=== PATIENT | female | born 1960 | race Caucasian/White ===

== ENCOUNTER 2017-06-28 21:58 | Emergency (ER) | payer MEDICARE, OTHER ==
[~2017-06-28] VITALS: Ht 162.6 cm; Wt 59.0 kg
[~2017-06-28 21:58] MED LIST: BLACK COHOSH540 MG PO; BUSPIRONE HCL30 MG PO; COMBIVENT INH14.7 GM INH; CYMBALTA30 MG PO; CYMBALTA60 MG PO; HYDROCODON-ACE1 EAC3 PO; LYRICA75 MG PO; PRILOSEC20 MG PO
[2017-06-28] MEDS ORDERED: IBUPROFEN IB200 MG PO (22:26)
== END 2017-06-28 23:48 | disposition home or self-care (01) ==
LOC: ED 21:58
DX: G89.29 Other chronic pain (principal); M79.641 Pain in right hand; F41.9 Anxiety disorder, unspecified; J44.9 Chronic obstructive pulmonary disease, unspecified; F17.200 Nicotine dependence, unspecified, uncomplicated
CPT/HCPCS: 99282

== ENCOUNTER 2020-01-06 10:55 | Inpatient (IN) | payer MEDICARE, OTHER ==
[~2020-01-06] VITALS: Ht 162.6 cm; Wt 51.7 kg
[~2020-01-06 10:55] MED LIST changes: +IBUPROFEN IB200 MG PO
--- NOTE | 2020-01-06 13:50 | NUR ---
56 year old female PATIENT ADMITTED TO CCU UNDER DR. GARZA WITH DX OF ETOH WITHDRAWAL. UPON ADMIT PATIENT IS AWAKE. TO COMMODE TO VOID, IS UNSTEADY ON FEET. VERY SHAKEY. IS SOMEWHAT AGGITATED WITH ADMISSION AND WHAT IS HAPPENIG WITH HER. PAST HISTORY OF SEIZURE THAT THE PATIENT DOES NOT RECALL. OLD AND FRESH BLOOD IN AND AROUND MOUTH. TO BE. ADMISSION PROCESS STARTED. PATIENT WILL NOT ANSWERE MOSST OF ADMISSION QUESTIONS.
--- NOTE | 2020-01-06 14:30 | NUR ---
UP TO COMMODE AGAIN. VERY UNSTEADY ON FEET. VERY SHAKEY. UPON RETURN TO BED, ATIVAN 1 MG IV GIVEN. SITTING UP IN BED TO EAT. IVF INFUSING. BOLUS INFUSING, BANANA BAG, KCL AND MAG RIDER. TOOK PO KCL WELL. IS SHORT OF BREATH WITH EXERTION. NEB TREATMENT GIVEN BY RT.
--- NOTE | 2020-01-06 15:00 | NUR ---
TOOK FOOD POOR. IS VERY FORGETFUL. ATTEMPING TO GET OUT OF BED. NEEDS FREQUENT REMINDERS.
--- NOTE | 2020-01-06 16:04 | NUR ---
1 MG IV ATIVAN GIVEN FOR CIWA OF 10. PT VERY TREMULOUS. BED ALARM ON FOR SAFETY.
--- NOTE | 2020-01-06 17:30 | NUR ---
sitting up at bedside. ASKING TO GO OUTSIDE TO SMOKE. ATIVAN 1 MG IV GIVEN. THEN BACK TO BED.
--- NOTE | 2020-01-06 18:30 | NUR ---
UP TO COMMODE. REMAINS VERY UNSTEADY. IS FORGETFUL. TAKING FEW BITES OF DINNER.
--- NOTE | 2020-01-06 18:48 | NUR ---
PATIENT ALSO STATES TO THIS RN, "I CAN'T TAKE THIS MUCH OXYGEN HOME, THERE'S NOW WAY I COULD DO THAT." ATTEMPTED TO EXPLAIN TO PATIENT THAT IF SHE WERE TO TRANSITION TO COMFORT CARE FROM THIS HOSPITAL STAY, SHE WOULDN'T NECESSARILY BE TAKING "THAT MUCH" OXYGEN HOME, BUT INSTEAD OXYGEN FOR COMFORT. PATIENT WANTING TO KNOW SPECIFICALLY HWO MUCH OXYGEN IT WOULD BE. PATIENT HAS STATED THAT SHE THINKS SHE IS MORE OR LESS READY TO STOP SOME OF THIS TREATMENT BUT DOENS'T KNOW HOW HER DAUGHTERS WILL HANDLE EVERYTHING. REITERATED TO PATIENT THAT IT'S IMPORTANT FOR HER TO MAKE HER DECISIONS BASED ON WHAT SHE WANTS FOR HER CARE. REMINDED PATIENT THAT SHE IS IN CHARGE OF HER MEDICAL DECISIONS, AND THAT IF SHE WANTS TO CONTINUE WITH THE WAY THINGS ARE, THEN THAT'S WHAT HER DECISION SHOULD BE, BUT IF SHE WANTS SOMETHING DIFFERENT, SHE NEEDS TO TELL US.
--- NOTE | 2020-01-06 21:47 | NUR ---
TOOK OVER CARE FOR THIS PT AT 2114. CIWA DONE AT THAT TIME WAS A 9. PT WAS RESTLESS AND VERY TREMULOUS. 2MG IV ATIVAN WAS GIVEN. ALL LOBES ARE DIMINISHED, ABD SOUNDS ARE PRESENT, NO PERIPHERAL EDEMA NOTED. THERE IS BRUISING A LAC AND EDEMA AROUND THE LEFT ORBIT. WILL CONTINUE TO MONITOR. URINE OUTPUT ADEQUATE SO FAR.
--- NOTE | 2020-01-06 22:15 | NUR ---
PT WAS TO BE GIVEN ORDERED K+ PO AND THIAMIN PO. PT ASPIRATED ON PILL. PT NOT ABLE TO SWALLOW ANY PILLS AT THIS TIME. WILL CALL MD AYERS.
--- NOTE | 2020-01-06 22:30 | NUR ---
WAS CALLED. HE WILL CHNAGE ORDERS AROUND. HELD OFF ON THE 2MG IV ATIVAN AT THIS TIME BECAUSE I WANT TO SEE HOW PT IS DOING IN REGARDS TO RESPIRATIONS AND O2 SATS.
--- NOTE | 2020-01-06 23:00 | NUR ---
LOBES APPEAR CLEAR AT THIS TIME BUT PT NOW HAS COARSNESS IN HER UPPER AIRWAY PRESENT. O2 SATS ARE WDL ON RA, RR STILL IN THE 20'S-30'S. THIS IS NOT A NEW FINDING. PT HAS BEEN WITH HIGH RR SINCE I TOOK OVER CARE. ALSO HAD TO CALL TELE-PHARMACY TO CHANGE ORDER OF IV POTASSIUM SINCE WE DO NOT HAVE THE 500MLS BAG AVAILABLE AT NIGHT. TELE-PHARMACY TO CHANGE ORDER.
--- NOTE | 2020-01-07 00:17 | NUR ---
PT SINCE ABOUT A 1/2 HOUR HAS BEEN SLEEPING. K+ IS RUNNING. WILL CONTINUE TO MONITOR.
--- NOTE | 2020-01-07 01:28 | NUR ---
BORTH IV SITES HAD TO BE REMOVED DUE TO LEAKING AND INFILTRATION. IT WAS ALMOST IMPOSSIBLE TO START A NEW IV SITE EVEN WITH 4MG IV ATIVAN ON BOARD. PT IS STILL AGITATED AND RESTLESS AT THIS TIME.
--- NOTE | 2020-01-07 02:47 | NUR ---
PT AT THIS TIME IS RESTING. PT SO FAR HAS NOT OPENED HER MOUTH FOR ME. PT HAD DRY BLOOD PRESENT AROUND HER MOUTH. PERHAPS SHE HAS BITEN HER TONGUE DURING HER SEIZURE. WILL KEEP TRYING. THIS MAY ALSO HAVE TO DO WITH HER HAVING DIFFICULTY SWALLOWING.
--- NOTE | 2020-01-07 04:00 | NUR ---
RR STILL IN THE MID 30'S FOR THE MOST PART. PT WOULD BENEFIT FROM AN ORAL AIRWAY BUT PT WON'T TOLERATE THIS. PT HAS GRUNTING PRESENT IN UPPER AIRWAY, ALL LOBES ARE DIMINISHED AND CLEAR, NO CHANGES WERE NOTED WITH THIRD ASSESSMENT. BESIDES RR, OTHER V/S ARE WDL, URINE OUTPUT IS WDL.
--- NOTE | 2020-01-07 05:54 | NUR ---
AT START OF SHIFT PT WAS VERY TREMULOUS, RESTLESS AND AGITATED. MAX DOSES OF IV ATIVAN WAS GIVEN. RR HAS REMAINED IN THE MID 30'S PRETTY MUCH ALL SHIFT. PT DID SETTLE IN THE PHYSICIAN/INTERNIST HOURS. PT ALSO LOST TWO IV SITES DUE TO IV K+. NEW IV SITE WAS STARTED, PT WAS ALSO MILDLY TACHY UNTIL THE EARLY MORING HOURS. PT SEEMS TO HAVE A VERY SWOLLEN TONGUE BUT ALL SHIFT HAS REFUSED TO OPEN HER MOUTH FOR ME. IT IS HINDERING HER BREATHING VERY MUCH. GRUNTING WAS HEARD FOR THE MOST PART OF THIS SHIFT. I WOULD HAVE LIKED TO PUT IN AN ORAL AIRWAY BUT PT WOULD NOT HAVE TOLERATED THAT WELL. AT ABOUT 2215 PO MEDICATIONS WERE ATTEMPTED TO BE GIVEN. PT ASPIRATED AND CHOCKED. NPO STATUS/ST WOULD BE NEEDED FOR THIS PT. SINCE THEN ONLY MOUTH SWABS HAVE BEEN USED. ALL LOBES HAVE BEEN DIMINISHED ALL SHIFT, PT FOR THE MOST PART WAS ONLY ORIENTED TO SELF AND OCCASIONALLY TO PLACE. CIWAS DONE THIS SHIFT WERE FROM 0 TO 15. NO PERIPHERAL EDEMA HAS BEEN NOTED, URINE OUTPUT HAS BEEN ADEQUATE. PT AT THIS TIME IS SLEEPING.
--- NOTE | 2020-01-07 08:08 | NUR ---
PT SLEEPING; RESP 32-38/MIN, HOB ELEVATED. PT IS ON RA. OXYGEN SATURATION IS 96%. AM CIWA ASSESSMENT COMPLETED, SCORE OF 7. PT RESPONSIVE TO VERBAL STIMULI WHEN THIS RN WOKE HER FROM SLEEP FOR HER AM ASSESSMENT; ORIENTED TO PERSON AND PLACE. FINE TREMORS NOTED IN ARMS WHILE AWAKE. BRUISE NOTED TO LEFT ORBIT AREA WITH A SMALL HEALING LACERATION. BLOOD PRESSURE STABLE, AFEBRILE AT THIS TIME. PT REMAINS A 1:1 AT THIS TIME FOR ONGOING MONITORING.
--- NOTE | 2020-01-07 09:24 | NUR ---
ATIVAN 2MG IVP ADMIN AT FOR CIWA SCALE OF 9. PT RESTLESS WITH TREMORS NOTED. PT REPORTS SHE IS "HAVING BAD DREAMS". PT'S VITAL SIGNS ARE STABLE AT THIS TIME, RESP EVEN AND NON LABORED.
--- NOTE | 2020-01-07 10:39 | NUR ---
PT SLEEPING AT THIS TIME, EYES CLOSED, RESP NON LABORED, RESP 28-36/MIN. CPOX INTACT, OXYGEN SATURATION LEVEL OF 92% ON RA. PT HAS A BIT OF A SWOLLEN TONGUE; SHE REPORTED EARLIER THAT SHE HAD PREVIOUSLY BITTEN IT WHEN SHE RECENTLY FELL AT HOME. TONGUE HAS NO BLEEDING NOTED. OXYGEN SATURATION HAS BEEN 92-98% THIS SHIFT. .
--- NOTE | 2020-01-07 11:25 | NUR ---
DR. AYERS MADE AWARE THAT PT HAS NOT YET VOIDED THIS SHIFT. FLUID BOLUS ORDER PLACED BY PROVIDER AT THIS TIME.
--- NOTE | 2020-01-07 12:40 | NUR ---
PT ASSISTED TO BEDSIDE COMMODE WITH 2PA; VOIDED 500ML URINE WITH FORMED MED SIZED STOOL. PT BACK TO BED AT THIS TIME.
--- NOTE | 2020-01-07 13:06 | NUR ---
DR AYERS NOTIFIED OF PATIENT RESTLESSNESS. VERBAL ORDER RECEIVED FOR ANOTHER DOSE OF PHENOBARBITAL. PATIENT REMAINS A 1:1 STAFF RATIO.
--- NOTE | 2020-01-07 13:37 | NUR ---
resting comfortably in bed. sleeping.
--- NOTE | 2020-01-07 13:49 | NUR ---
Pt resting at this time, eyes closed, resp on unlabored, 34/min, 02 sat level of 96% on ra. Pt has not notable distress. Pt remains a 1:1 for continuous monitoring.
--- NOTE | 2020-01-07 14:28 | NUR ---
Pt resting, eyes closed, respirations non labored. Pt has no notable distress. IV fluids infusing at this time. Pt appears comfortable.
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
--- NOTE | 2020-01-07 14:37 | NUR ---
Attempted to see pt. Asked by Rn to not awaken as pt requires a sitter and is finally sleeping. Attempted to call KD Harmon. Unable to reach message left.
--- NOTE | 2020-01-07 15:20 | NUR ---
SPEECH PATHOLOGY: Called RN. RN stated pt not able to participate in swallowing evaluation today d/t ETOH withdrawal. Will reassess tomorrow.
--- NOTE | 2020-01-07 15:57 | NUR ---
PT AWAKE, TREMORS AND AGITATION NOTED. PT ATTEMPTING TO GET OUT OF BED, EXPLAINED TO PT WE CAN DO A PIVOT TO COMMODE OR CHAIR BUT SHE IS UNSTEADY ON HER FEET. SECOND RN IN TO ASSIST WITH PT CARE. ATIVAN 2MG IVP ADMIN PER [facility] PROTOCOL.
--- NOTE | 2020-01-07 16:49 | NUR ---
PT VERY RESTLESS WITH INCREASED TREMORS AND AGITATION. CIWA SCORE OF 13, ATIVAN 4MG IVP ADMIN AT THIS TIME.
--- NOTE | 2020-01-07 18:03 | NUR ---
PT RESTING, EYES CLOSED, RESP NON LABORED, 02 SAT LEVEL OF 97% ON RA. PT RESTING WITHOUT NOTABLE DISTRESS; NO TREMORS. CONTINUED 1:1 FOR ONGOING MONITORING.
--- NOTE | 2020-01-07 20:10 | NUR ---
RECEIVED REPORT AT 1900, PT CURRENTLY VERY SEDATED, V/S STABLE, TEMP IS A 99.2 F AXILARRY AT THIS TIME. PT WAS SUCTIONED WELL. ALL LOBES ARE CLEAR BUT DIMINISHED, ABD SOUNDS ARE PRESENT, RADIAL AND PEDIS PULSES +2, BILATERAL LOWER LEG EDEMA IS NOW PRESENT +1. LEFT ORBITAL EDEMA ANS BRUISING IS STILL PRESENT. WILL CONTINUE TO MONITOR.
--- NOTE | 2020-01-07 20:30 | NUR ---
PT IS AWAKE NOW AND TRYING TO GET OUT OF BED. PT NOT REALLY DIRECTABLE AT THIS TIME. WILL TRY THE BEDSIDE COMMODE. IF PT STAYS RESTLESS AND AGITATED, ATIVAN WILL BE GIVEN.
--- NOTE | 2020-01-07 22:09 | NUR ---
PT AT THIS TIME IS SLEEPING. V/S WDL OVERALL. NO NEW CONCERNS NOTED.
--- NOTE | 2020-01-07 23:08 | NUR ---
PT AT THIS TIME IS GETTING RESTLESS AGAIN. PT IS TRYING TO CLIMB OUT OF BED AND IS PULLING ON ALL THE CORDS. PT STATED THAT SHE WANTED TO WALK OUT OF HERE. PT SOMEWHAT RE-DIRECTABLE AT THIS TIME
--- NOTE | 2020-01-07 23:48 | NUR ---
CIWA AT 2330 WAS A 10. I TRIED TO KEEP PT IN BED AND RE-DIRECT HER BUT TO NO AVAIL. 4MG IV ATIVAN WAS GIVEN. WILL CONTINUE TO MONITOR. PT IS RESTING NOW.
--- NOTE | 2020-01-08 00:30 | NUR ---
SECOND ASSESSMENT WAS UNCHANGED FROM THE FIRST. TEMP STILL 99.2 F. OTHER V/S WDL OVERALL. PT IS SLEEPING AT THIS TIME. 4MG IV ATIVAN WAS GIVEN DUE TO CIWA OF 10.
--- NOTE | 2020-01-08 01:53 | NUR ---
PT IS SLEEPING AT THIS TIME. PT HAS NOT VOIDED FROM 2200 UNITL NOW. WILL CONTINUE TO MONITOR.
--- NOTE | 2020-01-08 04:15 | NUR ---
PT AT THIS TIME IS STILL SLEEPING. RR STILL ELEVATED IN THE 20' TO MID 30'S. OTHER V/S ARE WDL, PT AT THIS TIME IS DUE TO VOID. SO FAR PT ONLY HAD OUT 200MLS THIS SHIFT. WILL CONTINUE TO MONITOR.
--- NOTE | 2020-01-08 05:37 | NUR ---
PT STILL HAS NOT VOIDED. BLADDER SCAN SHOWED 660MLS. ONCE LAB LEAVES PT WILL BE WOKEN UP AND SEATED ON THE BEDSIDE COMMODE.
--- NOTE | 2020-01-08 05:55 | NUR ---
PT DID VOID 400MLS AND HAD A BM. PT IS BACK IN BED.
--- NOTE | 2020-01-08 06:39 | NUR ---
PT IS STILL VERY SLEEPY OR PERHAPS AT THIS POINT I WOULD CALL IT LETHARGIC. PT WAS VERY WEAK EARLIER WHEN WE GOT HER UP TO THE BEDSIDE COMMODE. PT WAS ALSO CONFUSED AND WAS NOT FOLLOWING DIRECTIONS AT ALL. RR STILL IN THE 30'S, OTHER V/S ARE WDL. URINE OUTPUT FOR THIS SHIFT WAS 600MLS WITH 0ML PO INTAKE.
--- NOTE | 2020-01-08 07:51 | NUR ---
PATIENT DID MOVE AROUND A LITTLE BIT. NOW SHE IS SLEEPING.
--- NOTE | 2020-01-08 08:15 | NUR ---
PT RESTING SUPINE IN BED EYES CLOSED AND RESPIRATIONS EVEN AND UNLABORED. PT APPEARS TO BE SLEEPING COMFORTABLY. AM ASSESSMENT COMPLETED AND AM MEDS ADMINISTERED. PT APPEARS TO BE IN NO ACUTE DISTRESS. RESPIRATIONS REMAIN TACHYMPNIC IN LOW 30'S, O2 SAT MAINTAINING IN 90'S ON RA. CALL LIGHT IN REACH. PT REMIANS 1:1 WITH WATER TAXI OPERATOR FOR SAFETY.
--- NOTE | 2020-01-08 08:40 | NUR ---
PATIENT HAS MOVED A LITTLE BIT. TOOK HER VITALS. PATIENT IS BACK SLEEPING.
--- NOTE | 2020-01-08 09:01 | NUR ---
PATIENT IS SLEEPING.
--- NOTE | 2020-01-08 09:50 | NUR ---
PT RESTING SUPINE IN BED EYES CLOSED AND RESPIRATIONS EVEN AND UNLABORED. CALL LIGHT IN REACH AND PT REMAINS ON 1:1 FOR SAFETY WITH MARINE STRUCTURAL WELDER. PT APPEARS TO BE SLEEPING COMFORTABLY.
--- NOTE | 2020-01-08 11:15 | NUR ---
Was able to speak with Marjan. She is slurring words and difficult to understand. Pt is sitting on edge of bed wiping her face. Would like help establishing with a PCP. Asked if she is interested in [facility]. Unable to understand her response. Informed I will see her tomorrow.
--- NOTE | 2020-01-08 11:27 | NUR ---
PATIENT ATE SOME JELLO AND WE GOT HER SOME ICE WATER. SHE ODERED SOME LUNCH. ALSO PATIENT GOT UP TO THE BEDSIDE COMMODE. PATIENT IS NOW SLEEPING.
--- NOTE | 2020-01-08 12:00 | NUR ---
PT RESTING IN SEMIFOWLERS POSITION IN BED ALERT AND ORIENTED TO PERSON, PLACE AND SITUATION. CALL LIGHT IN REACH. PT EATING JELLO AND SWALLOWING WITHOUT DIFFICULTY OR COUGHING AT THIS TIME. PT REMAINS 1:1 WITH LIQUEFACTION SUPERVISOR. PT STATES "I'M FEELING BETTER TODAY". PT REMAINS SLOW TO RESPONS BUT DOES FOLLOW COMMANDS. PT ASSESSMENT WAS COMPLETED. WARM BLANKETS PROVIDED PER PT REQUEST. NO FURTHER NEEDS OR CONCERNS VOICED.
--- NOTE | 2020-01-08 13:31 | NUR ---
REPORT CALLED OVER TO ENA FLORES ALL QUESTIONS ANSWERED. PT TRANSFERED TO ROOM 121 AT 1340. PT ALERT AND ORIENTED AND APPEARED TO BE IN NO ACUTE DISTRESS. PT ORIENTED TO ROOM 121 AND LEFT IN CARE OF ENA FLORES. ADRI ZHAO REMAINS 1:1 WITH PATIENT FOR SAFETY.
--- NOTE | 2020-01-08 14:20 | NUR ---
PT RESTING IN FOWLERS POSITION IN BED EYES CLOSED AND RESPIRATIONS EVEN AND UNLBAORED AT 28. LR HUNG AND NOW INFUSING ORDERED -SEE EMAR. PT REMAINS 1:1 WITH INDUSTRIAL WORKERS AND APPEARS TO BE SLEEPING COMFORTABLY.
--- NOTE | 2020-01-08 14:35 | NUR ---
IN TO SEE PATIENT.
--- NOTE | 2020-01-08 14:54 | NUR ---
PT REQUESTED I VISIT ANOTHER TIME WHEN SHE IS FEELING BETTER
--- NOTE | 2020-01-08 15:19 | NUR ---
PATIENT IS SITTING UP IN BED EATING HER JELLO. NOW SHE IS GOING TO SLEEP. I HAVE TRIED TO TAKE HER LUNCH TRAY A WAY BUT SHE SAYS NO SHE WILL EAT IT.
--- NOTE | 2020-01-08 15:31 | NUR ---
REPORT RECEIVED FROM MARGUERITE SUTHERLAND.
--- NOTE | 2020-01-08 15:39 | NUR ---
PT ARRIVED TO FLOOR VIA BED. VITALS TAKEN, LR AT 125 INFUSING. ASSESSMENT COMPLETED.CHILDRENS CLUB ATTENDANT AT BEDSIDE FOR 1:1. VISIBLE FROM NURSING STATION.
--- NOTE | 2020-01-08 18:00 | NUR ---
PT ASSISTED UP TO CHAIR FOR DINNER. ALERT AND ORIENTED TO ALL BUT SITUATION. CERTIFIED RESIDENTIAL MEDICATION AIDE IN FOR 1;1. PT DENIES PAIN.
--- NOTE | 2020-01-08 19:41 | NUR ---
PT WAS GIVEN A SHOWER, TOLERATED WELL, CURRENTLY UP IN CHAIR, RESTING, EYES CLOSED, NO C/O PAIN OR RESP DISTRESS, CALM, QUIET, CALL LIGHT AT BEDSIDE.
--- NOTE | 2020-01-08 21:04 | NUR ---
VITALS DONE AND CHARTED. GAVE PT A JELLO PER HER REQUEST. SHE IS SITTING IN THE CAHIR AND IS COMFORTABLE. SHE NEEDS NOTHING AT THIS TIME. BEDSIDE TABLE AND CALL LIGHT IN REACH.
--- NOTE | 2020-01-08 21:51 | NUR ---
PT AWAKE, ON ROOM AIR, EATING, MILD HAND TREMORS PRESENT, UNSTEAEDY GAIT, ON 1:1, CIWA SCALE ASSESSMENT 5, ALERT, ANSWERS QUESTIONS SLOWLY BUT APPROPRIATELY. SEIZURE, FALL AND ASPIRATION PRECAUTIONS IN PLACE. IVF INFUSING. LUNGS DIM AT BASES, MOIST NON PROD COUGH PRESENT, DENIES C/O PAIN OR N/V
--- NOTE | 2020-01-08 23:01 | NUR ---
GAVE PT SOME TEA. SHE IS COMPLAINING THAT SHE CANT SLEEP AND IF SHE COULD GET SOMETHING FOR THAT? I INFORMED HER RN MONICO. I BLADDER SCANNED HER FOR 270M , I ALSO INFORMED RN MONICO. BEDSIDE TABLE AND CALL LIGHT IN REACH. BED ALARM SET.
--- NOTE | 2020-01-08 23:07 | NUR ---
PT BACK TO BED FROM CHAIR, IMPULSIVE, BACK TO BED, SEIZURE PADS AND BED ALARM ON. HAS NOT VOIDED SINCE TRANSFERRING TO NC/ BLADDER SCANNED 275CC PER SCANNER. DR AYERS NOTIFIED VIA PHONE. NEW ORDERS FOR LR 500CC BOLUS X1 AND PT C/O INSOMNIA, MELATONIS 5MG PO QHSPRN OBTAINED, PT CALM, OBEYS INSTRUCTIONS, INVOLUNTARY HAND TREMORS STILL PRESENT.
--- NOTE | 2020-01-09 00:16 | NUR ---
PT BED ALARM WENT OFF, I HELPED HER TO THE BATHROOM AND BACK TO BED. BED ALARM SET. BEDSIDE TABLE AND CALL LIGHT IN REACH.
--- NOTE | 2020-01-09 01:19 | NUR ---
In bed, resting, eyes closed, resp even, unlabored, clam, zeizure and fall precautions in place. bed alarm on. ivf infusing. pt voided earlier.
--- NOTE | 2020-01-09 03:59 | NUR ---
Resting, no distress, eyes closed, calm, IVF infusing, Seizure pads in place, bed alamr on. call light and fluids at bedside
--- NOTE | 2020-01-09 05:34 | NUR ---
VITALS AND I&OS DONE AND CHARTED. BEDSIDE TABLE AND CALL LIGHT IN REACH. BED ALARM ON. PT NEEDS NOTHING MORE AT THIS TIME.
--- NOTE | 2020-01-09 05:48 | NUR ---
Pt slept most of this shift, impulsive, bed alarm on, seizure pads in place. Pt received a 500cc bolus IVF for no void, voided. eating and drinking w/o problems. CIWA scores this shift 5 and 7. Has unintentional hand tremors. much more alert and oriented
--- NOTE | 2020-01-09 07:47 | NUR ---
REPORT RECEIVED FROM DIAL LATHE OPERATOR MJ. PT IN BED WITH EYES CLOSED. RESPIRATIONS EQUAL AND NONLABORED. LR AT 125 INFUSING . SEIZURE PADS IN PLACE. NATIONAL RECRUITER 1:1 AT BEDSIDE. VISIBLE FROM NURSING STATION.
--- NOTE | 2020-01-09 10:03 | NUR ---
ASSESSMENT COMPLETED. PT IS ALERT AND ORIENTED TO ALL BUT SITUATION. SAT AT SIDE OF BED FOR BEARKAST. TONGUE STILL BRUISED. REPORTS DECREASE IN PAIN. SWALLOWING WELL. ATE 100% OF BREAKFAST. WALKER AT BEDSIDE. BED ALARM IN PLACE. REMOVED 1:1 SATTUS. PT ABLE TO TALK BACK HOW TO CALL FOR HELP. FLUIDS INFUSING. CALL LIGHT INREACH.
--- NOTE | 2020-01-09 10:43 | NUR ---
SPECH THERAPY IN FOR EVALUATION.
--- NOTE | 2020-01-09 11:10 | NUR ---
PATIENT ATE HER BREAKFAST ON THE SIDE OF THE BED. SHE DIDN'T WANT TO SIT UP IN HER CHAIR. ALSO BED ALARM IS ON.
--- NOTE | 2020-01-09 11:11 | NUR ---
ALSO THIS MORING BROUGHT HER SOME MORE ICE WATER AND A CUP OF COFFEE. COUPLE WARM BLANKETS.
--- NOTE | 2020-01-09 11:19 | NUR ---
HAD BRIEF VISIT WITH PT. SHE SEEMED RECEPTIVE TO MY VISIT, ENGAGED IN OUR CONVERSATION. NOTICED BRUISING AND LACERATION OVER PTS' L.EYE. ST IN, HAD TO END VISIT. LEFT G.POST AND GAVE BLESSING. PT THANKED ME
--- NOTE | 2020-01-09 11:41 | NUR ---
SBA TO AMBULATE HALLS. ABLE TO COMPLETE 1 LAP WITH 2 STANDING BREAKS AND ONE SITTING. NOW SITTING AT SIDE OF BED WITH LUNCH. CALL LIGHT IN REACH AND BED ALARM ON
--- NOTE | 2020-01-09 12:30 | NUR ---
Spoke with Marjan, she would like to dc today. Spoke with Faustino yesterday and he will take her home on dc. Per [address]man he will dc after he sees this pt if she is medically stable.
[2020-01-09] MEDS ORDERED: FOLIC ACID1 MG PO (13:30)
[2020-01-09] MEDS ORDERED: VITAMIN B-1100 M1 PO (13:30)
[2020-01-09] MEDS ORDERED: NICOTINE PATCH1 EAC1 TD (13:31)
--- NOTE | 2020-01-09 13:36 | NUR ---
DR AYERS IN TO ROUND ON PT. SIDCHARGE PLAN DISCUSSED.
--- NOTE | 2020-01-09 13:53 | NUR ---
Pt would like to establish care with an MD. Called and made an appt with Dr. Jensen at [facility]. for January 21, pm. Pt will need to arrive 20 min. early. Note given to nurses and they will add to dc instructions. Updated pt. She is attempting to call SO for a ride when discharged.
[2020-01-09] MEDS ORDERED: COMBIVENT RESPIM4 GM INH (13:59)
[2020-01-09] MEDS ORDERED: VENTOLIN HFA18 GM INH (14:04)
--- NOTE | 2020-01-09 15:18 | NUR ---
DISHCARGE INSTRUCTIONS PROVIDE.D PHARMACY IN TO DISCUSS MEDICATIONS. NO QUESTIONS FROM PT. WHEELED OUT. VITALS TAKEN AND STABLE. IV DC'D AND ENL.
== END 2020-01-09 15:15 | disposition home or self-care (01) | DRG 897 ==
LOC: ED 10:55 → CCU 10:56 → MS 01-08 15:43
PROVIDERS: ADMIT Internal Medicine
DX: F10.231 Alcohol dependence with withdrawal delirium (principal); K70.10 Alcoholic hepatitis without ascites; R56.9 Unspecified convulsions; E87.6 Hypokalemia; E83.42 Hypomagnesemia; F17.210 Nicotine dependence, cigarettes, uncomplicated; D69.6 Thrombocytopenia, unspecified; J42 Unspecified chronic bronchitis; M54.9 Dorsalgia, unspecified; G89.29 Other chronic pain; F41.8 Other specified anxiety disorders; Z79.899 Other long term (current) drug therapy
CPT/HCPCS: 36415; 51701; 70450; 71045; 80048; 80053; 81001; 82140; 83690; 83735; 85025; 85049; 85610; 92526; 92610; 94640; 94664; 99285-25; G0480; J2001; J2060; J2560; J3411; J3475; J3480; J7030; J7060; J7121

== ENCOUNTER 2022-02-21 15:39 | Emergency (ER) | payer MEDICARE, OTHER ==
[~2022-02-21] VITALS: Ht 162.6 cm; Wt 68.0 kg
[~2022-02-21 15:39] MED LIST changes: +COMBIVENT RESPIM4 GM INH; +FOLIC ACID1 MG PO; +NICOTINE PATCH1 EAC1 TD; +VENTOLIN HFA18 GM INH; +VITAMIN B-1100 M1 PO
[2022-02-21] MEDS ORDERED: PREDNISONE20 MG PO (16:53)
[2022-02-21] MEDS ORDERED: VENTOLIN HFA18 GM INH (16:53)
[2022-02-21] MEDS ORDERED: COMBIVENT RESPIM4 GM INH (16:53)
--- NOTE | 2022-02-22 00:23 | EKG ---
[facility] [address] [place], [place] [address] Signed Normal sinus rhythm with sinus arrhythmia Left axis deviation Abnormal ECG No previous ECGs available Confirmed by TRELL GARSIA MD ([id number] on 02/22/2022 12:23:07 AM Electronically Signed By: TRELL GARSIA MD 02/22/22 0023 PATIENT NAME: KARLA CONROY Electrocardiogram DATE OF : 60 PHYSICIAN: TRELL GARSIA MD REPORT #: [id number] REPORT IS CONFIDENTIAL AND NOT TO BE RELEASED WITHOUT AUTHORIZATION
== END 2022-02-21 17:22 | disposition home or self-care (01) ==
LOC: ED 15:39
DX: J44.1 Chronic obstructive pulmonary disease with (acute) exacerbation (principal); M19.90 Unspecified osteoarthritis, unspecified site; F17.200 Nicotine dependence, unspecified, uncomplicated; Z79.51 Long term (current) use of inhaled steroids
CPT/HCPCS: 71101; 93005; 93010; 94640; 99285-25; J7512